=== PATIENT | male | born 1990 | race Caucasian/White ===

== ENCOUNTER 2023-01-30 19:00 | Observation (INO) | payer MEDICAID, SELFPAY ==
[2023-01-30 19:00] VITALS: BP 174/113; PULSE 69; RESP 18; TEMP 37.1; O2SAT 99; BMI 27.3
--- NOTE | 2023-01-30 19:36 | PC.NURSE ---
Dr. Kellogg at BS speaking with pt
--- NOTE | 2023-01-30 19:47 | PC.NURSE ---
Pt provided with warm blanket
[2023-01-30 20:00] VITALS: BP 151/90; PULSE 104; O2SAT 100
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
--- NOTE | 2023-01-30 20:22 | PC.NURSE ---
Dr. Kellogg at BS
[2023-01-30 20:33] VITALS: BP 156/97; PULSE 82; O2SAT 99
[2023-01-30 20:34] LABS: Influenza A, PCR Not Detected (NotDetected); Influenza B, PCR Not Detected (NotDetected)
--- NOTE | 2023-01-30 20:36 | PC.NURSE ---
Dr. Kellogg s/w Lei Kovacs hospitalist for admission. security officer supervisor has also been s/w hospitalist & Care management regarding admission.
--- NOTE | 2023-01-30 20:52 | PC.NURSE ---
Lei Kovacs APRN at bedside, she agrees to admit. pigment making supervisor notified.
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
--- NOTE | 2023-01-30 21:19 | PC.NURSE ---
attempted to call reported to Yary. she states she would call back
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
[2023-01-30 21:32] VITALS: BP 151/81; BP 156/97; PULSE 80; PULSE 82; RESP 18; TEMP 37.1; O2SAT 99
[2023-01-30 22:00] VITALS: BP 166/81; PULSE 93; RESP 18; TEMP 37; O2SAT 100; BMI 27.3
[2023-01-30 22:01] LABS: Coronavirus 19, PCR Detected (NotDetected)
--- NOTE | 2023-01-30 22:18 | PC.NURSE ---
weight given by patient r/t bed scale not working cant stand
[2023-01-30 23:00] VITALS: O2SAT 100
[2023-01-31] VITALS: BP 144/79; PULSE 100; RESP 18; TEMP 36.9; O2SAT 100
[2023-01-31 04:00] VITALS: BP 170/101; PULSE 131; RESP 20; TEMP 36.8; O2SAT 98; BMI 27.4
--- NOTE | 2023-01-31 05:21 | PC.NURSE ---
pt admitted this shift, pt complains of pain rated 9/10, pt caths self, b/p elevated and angelia notified with no new orders, pt complains of having muscled spasms severe at times, no other issues noted at this time.
--- NOTE | 2023-01-31 07:38 | HMH.PHAINT1 ---
Pharmacy Intervention Comments: Medication reconciliation completed using external fill history and PATRICIA report
[2023-01-31 08:00] VITALS: BP 134/85; PULSE 103; RESP 19; TEMP 37.1; O2SAT 99
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
--- NOTE | 2023-01-31 09:18 | HMH.PHAINT1 ---
Pharmacy Intervention Comments: Discharge medications discussed with patient. Patient verbalized understanding and had no questions at this time.
--- NOTE | 2023-01-31 09:29 | SW/DCPLANNER ---
Addendum entered by Tamiko Shah 01/31/23 09:57: I was not able to override 72 hour notice for [employer] for transportation to appointment tomorrow. I have informed patient of situation and he stated not really sure about transportation for tomorrow . I advised patient to speak with family/friends for transportation for follow up appointment tomorrow and if he unable to find transportation to contact PCP office and change appointment to the 72 hour notice johanne. Patient verbalized that he understood. Patient does have transportation home today. Original Note: I received a referral for this patient regarding: resources needed including medication issues and transportation. Patient is established with PCP in [place] but is unhappy with their services due to medication issues. I have offered to set patient up with a PCP in [place]: patient stated only if they are a MD and a good one . Electrical Tech (Mai) was able to schedule an appointment with Dr Cunha for tomorrow 02/01/23 at 10:30AM. I will contact [employer] to set up a ride for appointment tomorrow. I have also provided patient with a [facility] Resource List at this time. Patient is not interested in any other services and stated he is only concerned about his medication. I informed patient that I can not make any medication changes and he could discuss this with PCP tomorrow. Patient voiced that he would have transportation home tomorrow. Patient has no further needs/questions at this time. Patient will discharge home today.
--- NOTE | 2023-01-31 10:35 | PC.NURSE ---
Patient transportation will not arrive until 3PM.
--- NOTE | 2023-01-31 11:46 | PC.NURSE ---
Patient requesting PRN OxyIR. Informed patient due to the OxySR he received overnight he was not able to receive another dose of OxyIR until 2PM.
--- NOTE | 2023-01-31 11:48 | PC.NURSE ---
Patient rates pain at an 8 on a 10 scale.
== END 2023-01-31 16:01 | disposition home or self-care (01) ==
LOC: ER 21:09 → 2ND 21:49
PROVIDERS: Emergency Medicine; Admitting Provider Internal Medicine Adolescent Medicine; Emergency Provider Emergency Medicine; Visit Provider Internal Medicine Adolescent Medicine
DX: M54.9 Dorsalgia, unspecified (principal); G82.20 Paraplegia, unspecified; F17.210 Nicotine dependence, cigarettes, uncomplicated; U07.1 COVID-19; Z79.899 Other long term (current) drug therapy
CPT/HCPCS: 99285; C9803; G0378; U0003; U0005

== ENCOUNTER 2023-02-02 21:19 | Emergency (ER) | payer MEDICAID, SELFPAY ==
[2023-02-02 21:21] VITALS: BP 155/88; PULSE 98; RESP 16; TEMP 37.1; O2SAT 99; BMI 26.6
[2023-02-02 22:09] VITALS: BP 155/88; PULSE 114; O2SAT 99
--- NOTE | 2023-02-02 22:24 | PC.NURSE ---
Md @ bedside speaking with pt, no new orders noted at this time
[2023-02-02 22:30] VITALS: BP 155/100
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
[2023-02-02 23:01] VITALS: BP 156/88; PULSE 101; O2SAT 100
[2023-02-02 23:30] VITALS: BP 133/85; PULSE 72; O2SAT 98
--- NOTE | 2023-02-02 23:34 | PC.NURSE ---
pt currently speaking with tongue lining stitcher [facility] insurance claim representative to place a complaint report due to lack of resources.
--- NOTE | 2023-02-02 23:49 | PC.NURSE ---
[facility] gave pt a reference number [id number]
[2023-02-03] VITALS: BP 138/88; PULSE 110; O2SAT 99
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
[2023-02-03 00:20] LABS: Microscopic, Urine URINE MICROSCOPIC (MICROSCOPIC)
[2023-02-03 00:22] LABS: Appearance,Urine CLEAR (Clear); Bilirubin,Urine Negative (Negative); Blood, Urine Negative (Negative); Color,Urine YELLOW (Yellow); Glucose,Urine (UA) Negative (Negative); Ketones,Urine Negative (Negative); Leukocyte Esterase,Urine Negative (Negative); Nitrate,Urine Negative (Negative); Protein,Urine Negative (Negative); Specific Gravity, Urine 1.025 (1.005-1.030); Urobilinogen,Urine 0.2 EU/dl (0.2)
[2023-02-03 00:30] VITALS: BP 127/93; PULSE 108; O2SAT 100
[2023-02-03 00:31] LABS: Basophils # 0.1 K/mm3 (0-0.2); Basophils % 2.1 % (0.1-2.0); Eosinophils # 0.6 K/mm3 (0.0-0.4); Eosinophils % 9.7 % (0.1-12.0); Hematocrit 45.4 % (42.0-52.0); Hemoglobin 14.7 g/dL (14.1-18.0); Lymphocytes # 1.8 K/mm3 (0.7-4.5); Lymphocytes % 29.9 % (10-50); Mean Corpuscular HGB Conc 32.4 g/dL (31.8-35.4); Mean Corpuscular Hemoglobin 30.7 pg (27.0-31.2); Mean Corpuscular Volume 94.7 fl (80-94); Mean Platelet Volume 8.5 fl (7.4-10.4); Monocytes # 0.4 K/mm3 (0.1-1.0); Monocytes % 6.2 % (1.7-9.3); Neutrophils # 3.1 K/mm3 (1.8-7.8); Neutrophils % 52.2 % (37.0-80.0); Platelet Count 251 K/mm3 (142-424); Red Cell Distribution Width 14.6 % (11.5-17.5); White Blood Count 5.9 K/mm3 (4.8-10.8)
[2023-02-03 00:32] LABS: Chloride 101 mmol/L (98-107); Potassium 4.1 mmoL/L (3.5-5.1); Sodium 137 mmol/L (136-145)
[2023-02-03 00:34] LABS: Alanine Aminotransferase 21 U/L (12-78); Aspartate Amino Transferase 28 U/L (17-59); Blood Urea Nitrogen 15 mg/dl (9-20); Creatinine Clearance Estimated 173 mL/min (50-200); Estimated Glomerular Filt Rate 132 ml/min (>60); GFR (African American) 160 ML/MIN (>60)
[2023-02-03 00:35] LABS: Albumin/Globulin Ratio 1.4 (1.1-1.8); Alkaline Phosphatase 73 U/L (38-126); Anion Gap 9.1 mEq/L (5-15); Bilirubin,Total 0.3 mg/dl (0.2-1.3); Calcium 8.6 mg/dl (8.4-10.2); Carbon Dioxide 31 mmol/L (22.0-30.0); Globulin 2.8 g/dL (1.3-3.2); Glucose 88 mg/dl (74-100); Total Protein,Serum 6.8 g/dl (6.3-8.2)
[2023-02-03 00:38] LABS: Squamous Epithelial Cell,Urine Occasional #/hpf (0-5)
[2023-02-03 01:00] VITALS: BP 144/85; PULSE 117; O2SAT 100
--- NOTE | 2023-02-03 01:05 | PC.NURSE ---
Aakash will contact Judy Alonzo per pt admission at this time
[2023-02-03 01:30] VITALS: BP 146/85
--- NOTE | 2023-02-03 01:40 | PC.NURSE ---
Spoke with Ashwini at [facility], made aware of patient discharge.
--- NOTE | 2023-02-03 01:48 | PC.NURSE ---
0000 Spoke with Ashwini at [facility] requested that patient be admitted. Will speak with ER doctor regarding request.
--- NOTE | 2023-02-03 01:50 | PC.NURSE ---
0105 Spoke with ER doctor reqarding admission. Stated that patient did not qualify for admission. Dr. Negron requested for someone to speak with Tory Alon[facility] regarding [facility] request.
--- NOTE | 2023-02-03 01:55 | PC.NURSE ---
Spoke with Alfred Alonzo regarding patient situation.
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
[2023-02-03 02:00] VITALS: BP 141/83
--- NOTE | 2023-02-03 02:07 | PC.NURSE ---
pt states that he spoke with friends and they can come @ 10am the earliest
[2023-02-03 02:09] VITALS: BP 141/83; PULSE 117; RESP 16; TEMP 37.1; O2SAT 98
--- NOTE | 2023-02-03 03:32 | PC.NURSE ---
pt is currently in ER lobby still awaiting his ride home at this time
== END 2023-02-03 02:25 | disposition home or self-care (01) ==
PROVIDERS: Emergency Provider Emergency Medicine
DX: G82.20 Paraplegia, unspecified (principal); R10.9 Unspecified abdominal pain; R22.43 Localized swelling, mass and lump, lower limb, bilateral
CPT/HCPCS: 80053; 81001; 85025; 99283; 99284

== ENCOUNTER 2023-02-03 12:38 | Observation (INO) | payer MEDICAID, SELFPAY ==
[2023-02-03] VITALS (11 sets, daily range): BP systolic 135–161; BP diastolic 83–100; PULSE 80–101; RESP 16–20; TEMP 36.6–37.1; O2SAT 98–100; BMI 25.8; BMI 27.1
--- NOTE | 2023-02-03 13:29 | PC.NURSE ---
HS aware of situation of pt, that he has no housing or any family to help care for the pt. HS reaching out to resources in helping with this pt home situation.
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
[2023-02-03 14:12] LABS: Influenza A, PCR Not Detected (NotDetected); Influenza B, PCR Not Detected (NotDetected)
[2023-02-03 15:24] LABS: Coronavirus 19, PCR Detected (NotDetected)
--- NOTE | 2023-02-03 16:29 | PC.NURSE ---
gave pt a blanket hes sleeping turn light out , call light @ bs
--- NOTE | 2023-02-03 17:05 | PC.NURSE ---
speaking to hospitalist
--- NOTE | 2023-02-03 17:06 | PC.NURSE ---
MICHELLE JUSTICE speaking with Hospitalist
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
--- NOTE | 2023-02-03 18:12 | PC.NURSE ---
patient taken to 2nd floor via stretcher with RICHARD Sampson. All belongings with patient
--- NOTE | 2023-02-03 18:14 | PC.NURSE ---
pt arrived to floor from ED
--- NOTE | 2023-02-03 18:48 | PC.NURSE ---
pt has been admitted to the floor. pt has some discrepancies in history and medication. pt denies any current ETOH or Drug use. pt states he has no medications with him, and is currently homeless. reports increased depression and anxiety. MD aware of pt status
--- NOTE | 2023-02-03 19:35 | PC.NURSE ---
pt came from er with no iv. patricia BUI knows pt doesnt have iv. states pt doesnt need one at this time since pt is here awaiting placement
[2023-02-04 04:00] VITALS: BP 134/75; PULSE 91; RESP 18; TEMP 36.7; O2SAT 98; BMI 27.2
--- NOTE | 2023-02-04 06:21 | PC.NURSE ---
NO ACUTE CHANGES SINCE PREVIOUS ASSESSMENT. REMAINS ON ROOM AIR. PT HAS C/O MUSCLE SPASMS AND PAIN THIS SHIFT AND HAS BEEN TREATED WITH PRN MEDS. VSS. PT HAS BEEN SELF CATHING WITH NO ISSUES. PT HAS STATED THAT HIS PRN PAIN MEDICATION HELPS A LITTLE BUT NOT MUCH. PT HAS BEEN TURNED REQUESTED. SCDS HAVE BEEN PLACED ON PT PER PT REQUEST.
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
[2023-02-04 08:00] VITALS: BP 127/58; PULSE 88; RESP 18; TEMP 37; O2SAT 97
--- NOTE | 2023-02-04 08:51 | HMH.PHAINT1 ---
Pharmacy Intervention Comments: MEDICATION RECONCILIATION COMPLETE USING EXTERNAL PHARMACY FILL HISTORY.
[2023-02-04 15:47] VITALS: BP 131/74; PULSE 74; RESP 18; TEMP 37.1; O2SAT 97
--- NOTE | 2023-02-04 18:43 | PC.NURSE ---
no acute changes from previous shift. pt has +2 ble edema, legs elevated, scuds on. pt has c/o of back pain and muscle spasms t/o shift, requesting more pain meds than what is prescribed. pt requested to speak with monserrat regarding a decrease in pain med mg and intervals. dr german told pt he would not increase pain med, pt cursed out at dr german when monserrat was educating pt on the need to wean self and decrease his use of pain meds. pt has no questions or complaints at this time. cb within reach.
[2023-02-04 19:53] VITALS: BP 141/81; PULSE 67; RESP 18; TEMP 36.9; O2SAT 99
[2023-02-05 04:00] VITALS: BP 137/77; PULSE 92; RESP 18; TEMP 36.9; O2SAT 97; BMI 27.4
--- NOTE | 2023-02-05 05:21 | PC.NURSE ---
NO ACUTE CHANGES SINCE PREVIOUS ASSESSMENT. PT HAS RESTED INTERMITTENTLY THIS SHIFT. REMAINS ON ROOM AIR. LUNGS CLEAR. NON-PRODUCTIVE COUGH. TURNING WITH ASSIST X1 NEEDED. PT STILL C/O PAIN IN HIS BACK. VSS.
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
[2023-02-05 08:00] VITALS: BP 108/70; PULSE 75; RESP 16; TEMP 36.7; O2SAT 99
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
--- NOTE | 2023-02-05 10:29 | SW/DCPLANNER ---
Addendum entered by [facility] 02/06/23 08:12: I have updated Sung w/ CLIFF that patient has signed out AMA. Addendum entered by Frannie Mann RN 02/05/23 15:26: Faxed [facility] and left message for admissions. Addendum entered by Frannie Mann RN 02/05/23 15:21: [facility] called and stated they are not able to care for this patient. They did forward his information to [facility]. The phone number for that facility is [phone] Addendum entered by [facility] 02/05/23 14:02: APS worker (Sung Marcelino [phone]) has been assigned to this case and present at [facility]. Sung has stated that she will begin seeking facilities for this patient as well. Addendum entered by [facility] 02/05/23 12:05: Patient information has been faxed to [facility]. Addendum entered by [facility] 02/05/23 11:35: I have also reached out to [facility] in [place] and [facility]: VM has been left for both facilities. Addendum entered by [facility] 02/05/23 11:24: [facility]/ [facility] stated that they can not accept this due to homelessness. Original Note: I spoke with this patient regarding discharge plans. Patient stated that he is interested in inpatient PT once medically stable for discharge. Patient information has been faxed to [facility] and I have reached out to [facility] in [place] ([phone]) and will faxed patient information. I have also reached out to [facility] in [place] for treatment program/homeless penitentiary.
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
[2023-02-05 15:13] VITALS: BMI 27.3
--- NOTE | 2023-02-05 16:54 | PC.NURSE ---
AROUND APPX 1400, PT STATED TO THIS NURSE THAT HE WANTED TO GO BACK WHERE HE CAME FROM. HE STATES THAT THEY ARE ABLE TO COME PICK HIM UP. PT ALSO STATES THAT HE HAS PRESCRIPTIONS READY FRO PICKUP AT [facility], WHICH HE IS GOING TO CALL AND HAVE TRANSFERRED TO CLINIC PHARMACY FOR PICKUP. THIS NURSE EXPLAINED TO PT THE RISK OF LEAVING AMA-PT UNDERSTANDS AND CONTINUES TO WANT TO LEAVE AMA. PT IS BECOMING VERY AGITATED AND WANTS TO LEAVE SOON HIS RIDE ARRIVES. THIS NURSE, DR GODOY, AND RIVERA JORGE DISCUSSED SITUATION WITH RIVERA MILIAN, SO THAT EVERYONE WAS MADE AWARE OF THE SITUATION AND THE PATIENT'S WISHES. AMA FORM SIGNED. PT LEFT THE FLOOR BY HIMSELF IN HIS OWN W/C AT 1622.
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
== END 2023-02-05 16:22 | disposition left against medical advice (07) ==
LOC: ER 17:11 → 2ND 17:45
PROVIDERS: Admitting Provider Family Medicine; Emergency Provider Emergency Medicine; Visit Provider Family Medicine
DX: Z59.00 Homelessness unspecified (principal); G82.20 Paraplegia, unspecified; F17.210 Nicotine dependence, cigarettes, uncomplicated; U07.1 COVID-19; Z60.9 Problem related to social environment, unspecified; Z79.899 Other long term (current) drug therapy; Z79.891 Long term (current) use of opiate analgesic; M54.9 Dorsalgia, unspecified; W34.00XS Accidental discharge from unspecified firearms or gun, sequela; Z59.41 Food insecurity; Z59.6 Low income; Z63.8 Other specified problems related to primary support group
CPT/HCPCS: 97162; 97165; 97530; 99285; C9803; G0378; U0003; U0005